=== PATIENT | female | born 1960 | race African-American/Black ===

== ENCOUNTER → 2017-02-25 | Outpatient (CLI) | payer OTHER ==
--- NOTE | ~2017-02-25 | MY29 ---
[facility] A Service of [facility] & [facility] / [facility] RADIOLOGY TEXT RESULTS PATIENT: ANNE-MARIE LACEY LOCATION: [facility] : 56 UNIT #: [id number] AGE: [address]: ROBSON CHINO MD SEX: F ORDER DR: [id number] [facility]. [place], [place] [address] [id number] O MR#: [id number] Acc #: [id number] NAME: ANNE-MARIE LACEY : 1960 SEX: F STUDY DATE/TIME: 02/25/2017 10:13 UNIT: [facility] ROOM: STUDY DESCRIPTION: MY GIACOMO SCREENING W/ CAD BILAT Attending Physician: Robson Chino M.D. Referring Physician: Robson Chino M.D. Ordering Physician: Robson Chino M.D. Primary Care Physician: Robson Cihno M.D. MEDICAL IMAGING REPORT This report is preliminary unless electronic signature is present EXAM Bilateral digital screening mammogram with CAD 02/25/2017 HISTORY 57-year-old female with family history of breast cancer in aunts at the age of 49 and 60. No personal history of breast cancer or current complaints. COMPARISON Bilateral screening mammogram 09/05/2015, 08/30/2014. FINDINGS CC and MLO views were obtained of each breast utilizing digital technique and reviewed with an FDA-approved CAD device. Heterogeneously dense fibroglandular tissue is present bilaterally. The parenchymal density appears increased compared to the prior examination, and correlation should be made for interval weight loss. No focal new or suspicious nodules are identified. Biopsy clip is located within the upper outer right breast central third. Scattered benign-appearing calcifications are present within each breast, but no new focal or suspicious clustered microcalcifications are identified. No focal architectural distortion or nipple retraction is identified. IMPRESSION 1. BIRADS category 2. Benign findings. 2. Interval increased density throughout both breasts, compared to the previous examination. Correlate for history of weight loss since the previous mammogram. 3. Routine bilateral screening mammogram is recommended in 1 year. Patients over the age of 40 are entered into a reminder system with target [facility] A Service of [facility] & [facility] / [facility] RADIOLOGY TEXT RESULTS PATIENT: ANNE-MARIE LACEY LOCATION: [facility] : 56 UNIT #: [id number] AGE: [address]: ROBSON CHINO MD SEX: F ORDER DR: due date for the next mammogram. A result letter will also be sent to the patient. BIRADS: 2 Benign finding Dictated by... Flora Robles M.D. THIS IS AN ELECTRONICALLY VERIFIED REPORT Flora Robles M.D. at 02/27/2017 8:49 AM MIRI/jairo TD: 02/25/2017 14:08 JOB #: [id number] MEDICAL IMAGING REPORT Page 1 of 1 COPY
== END | disposition home or self-care (01) ==
LOC: CWCC 09:49
DX: Z12.31 Encounter for screening mammogram for malignant neoplasm of breast (principal); R92.2 Inconclusive mammogram; Z80.3 Family history of malignant neoplasm of breast
CPT/HCPCS: G0202